=== PATIENT | male | born 1935 | race American Indian/Alaskan Native ===

== ENCOUNTER 2016-12-21 13:54 | Observation (INO) | payer MEDICARE, OTHER ==
[2016-12-21 14:17] VITALS: BMI 22.9
--- NOTE | 2016-12-21 14:35 | ED PDOC ---
Arrival/HPI - General Chief Complaint: Abdominal Pain Time Seen by Provider: 12/21/16 14:17 Historian: Patient, Family (Daughter) - History of Present Illness Narrative History of Present Illness (Text): 12/21/16 14:25 A 81 year old male, whose past medical history includes Esophageal CA, is accompanied to the emergency room with Daughter for complaints of 2 episodes of vomiting a few hours prior to arrival. Daughter notes that patient vomited red blood this morning. Daughter reports that patient had a similar episode of vomiting last year. Daughter denies diarrhea, fever, chest pain, shortness of breath, or any other complaints. PMD: Dr. Menard Time/Duration: 1-3 hours Symptom Onset: Sudden Symptom Course: Unchanged Severity Level: Moderate Activities at Onset: Light Context: Home Past Medical History - Provider Review Nursing Documentation Reviewed: Yes - Infectious Disease Hx of Infectious Diseases: None - Reproductive Currently : No - Cardiac Hx Hypertension: Yes - Pulmonary Hx Respiratory Disorders: No - Neurological Hx Neurological Disorder: No Hx Paralysis: No - HEENT Hx HEENT Disorder: Yes Other/Comment: wears glasses for reading - Renal Hx Renal Disorder: No - Endocrine/Metabolic Hx Endocrine Disorders: Yes Hx Diabetes Mellitus Type 1: Yes Hx Diabetes Mellitus Type 2: Yes - Hematological/Oncological Hx Blood Disorders: Yes Hx Blood Transfusions: Yes (04/20/16) Hx Blood Transfusion Reaction: No Hx Cancer: Yes (esophageal cancer) Hx Unexplained Bleeding: Yes (Hematemesis) - Integumentary Hx Dermatological Disorder: No - Musculoskeletal/Rheumatological Hx Musculoskeletal Disorders: Yes Hx Falls: No Hx Unsteady Gait: Yes (Uses a cane.) - Gastrointestinal Hx Gastrointestinal Disorders: Yes (esoph ca/peg/dysphagia/gi bleed) HX Swallowing Problems: Yes Other/Comment: esophageal cancer g tube placement - Genitourinary/Gynecological Hx Genitourinary Disorders: No Hx Reproductive Disorders: No - Psychiatric Hx Psychophysiologic Disorder: No Hx Emotional Abuse: No Hx Physical Abuse: No Hx Substance Use: No - Surgical History Hx Carotid Endarterectomy: Yes - Anesthesia Hx Anesthesia: Yes Hx Anesthesia Reactions: No Hx Malignant Hyperthermia: No - Suicidal Assessment Feels Threatened In Home Enviroment: No Family/Social History - Physician Review Nursing Documentation Reviewed: Yes Family/Social History: No Known Family HX Smoking Status: Never Smoked Hx Alcohol Use: No Hx Substance Use: No Allergies/Home Meds Allergies/Adverse Reactions: Allergies No Known Allergies Allergy (Verified 04/17/16 20:03) Home Medications: Home Meds Medication Instructions Recorded Confirmed Clopidogrel [Plavix] 75 mg PO DAILY 12/21/16 12/21/16 GlipiZIDE [Glipizide] 10 mg PO BID 12/21/16 12/21/16 Linaclotide [Linzess] 145 mcg PO BID 12/21/16 12/21/16 Metoclopramide [Reglan] 5 mg PO TID 12/21/16 12/21/16 Metoprolol Tartrate [Lopressor] 25 mg PO BID 12/21/16 12/21/16 Mv,Min #10/FA/D3/Alip Acid/Lut 1 tab PO DAILY 12/21/16 12/21/16 [Strovite One Caplet] Pantoprazole Sodium [Protonix] 40 mg PO DAILY 12/21/16 12/21/16 Sucralfate [Carafate] 2 tsp PO BID 12/21/16 12/21/16 amLODIPine [Norvasc] 10 mg PO DAILY 12/21/16 12/21/16 Review of Systems - Physician Review All systems were reviewed & negative as marked: Yes - Review of Systems Constitutional: absent: Fevers Respiratory: absent: SOB Cardiovascular: absent: Chest Pain Gastrointestinal: Vomiting. absent: Diarrhea Physical Exam Vital Signs Reviewed: Yes Vital Signs Temp Pulse Resp BP Pulse Ox 12/21/16 16:29 98.9 F 70 17 141/74 100 12/21/16 14:41 67 20 119/73 99 12/21/16 14:07 99.3 F 94 H 18 136/74 99 Temperature: Afebrile Blood Pressure: Normal Pulse: Tachycardic Respiratory Rate: Normal Appearance: Positive for: Well-Appearing, Non-Toxic, Comfortable Pain Distress: None Mental Status: Positive for: Alert and Oriented X 3 Finger Stick Blood Glucose: 286 - Systems Exam Head: Present: Atraumatic, Normocephalic Pupils: Present: PERRL Extroacular Muscles: Present: EOMI Mouth: Present: Moist Mucous Membranes Neck: Present: Normal Range of Motion Respiratory/Chest: Present: Clear to Auscultation, Good Air Exchange. No: Respiratory Distress, Accessory Muscle Use Cardiovascular: Present: Regular Rate and Rhythm, Murmurs (2/6 systolic murmur) , Tachycardic Abdomen: Present: Normal Bowel Sounds, Other (G-tube in the left abdomen). No: Tenderness, Distention, Peritoneal Signs Upper Extremity: No: Cyanosis, Edema Lower Extremity: No: Edema Neurological: Present: GCS=15, Motor Func Grossly Intact, Normal Sensory Function Skin: Present: Warm, Dry, Normal Color. No: Rashes Psychiatric: Present: Alert, Oriented x 3 Medical Decision Making ED Course and Treatment: Dr Menard saw the pt in the ED and will admit - Lab Interpretations Lab Results: 12/21/16 14:35 Lab Results 12/21/16 15:10: PT 10.0, INR 0.93, APTT 23.7 12/21/16 14:35: WBC 11.8 H D, RBC 3.88, Hgb 10.5 L, Hct 30.3 L, MCV 78.1 L, MCH 27.1, MCHC 34.7, RDW 13.6, Plt Count 284, MPV 10.4, Gran % 75.5 H, Lymph % (Auto ) 12.6 L, [place] % (Auto) 9.5 H, Eos % (Auto) 2.1, Baso % (Auto) 0.3, Gran # 8.94 H, Lymph # 1.5, [place] # 1.1 H, Eos # 0.3, Baso # 0.03 - RAD Interpretation Radiology Orders: 12/21/16 14:31 CHEST PORTABLE [RAD] Stat - Medication Orders Current Medication Orders: Amlodipine Besylate (Norvasc) 10 mg PO DAILY RANULFO Sodium Chloride (Sodium Chloride 0.45%) 1,000 mls @ 40 mls/hr IV .Q24H RANULFO Famotidine (Pepcid 20mg/50ml Premix) 50 mls @ 100 mls/hr IVPB Q12 RANULFO Ceftriaxone Sodium (Rocephin 1 Gram Ivpb) 100 mls @ 100 mls/hr IVPB DAILY RANULFO PRN Reason: Protocol Insulin Human Regular (Humulin R High) 0 units SC ACHS RANULFO PRN Reason: Protocol Metoprolol Tartrate (Lopressor) 25 mg PO BID RANULFO Pantoprazole Sodium (Protonix Inj) 40 mg IVP 0600 RANULFO Sucralfate (Carafate Oral Susp) 1 gm PO BID RANULFO - Scribe Statement The provider has reviewed the documentation as recorded by the Obdulioibpaco Sandoval All medical record entries made by the Obdulioibpaco were at my direction and personally dictated by me. I have reviewed the chart and agree that the record accurately reflects my personal performance of the history, physical exam, medical decision making, and the department course for this patient. I have also personally directed, reviewed, and agree with the discharge instructions and disposition. Disposition/Present on Arrival - Present on Arrival Any Indicators Present on Arrival: No History of DVT/PE: No History of Uncontrolled Diabetes: No Urinary Catheter: No History of Decub. Ulcer: No History Surgical Site Infection Following: None - Disposition Have Diagnosis and Disposition been Completed?: Yes Diagnosis: Hematemesis, Gastrointestinal hemorrhage, Esophageal cancer Disposition: HOSPITALIZED Disposition Time: 17:15 Condition: STABLE
[2016-12-21 14:46] LABS: ADD MANUAL DIFF? NO
[2016-12-21 14:55] LABS: BASO # 0.03 K/mm3 (0.0-2.0); BASO % 0.3 % (0.0-3.0); EOS # 0.3 (0.0-0.7); EOS % 2.1 % (1.5-5.0); GRAN # 8.94 (1.4-6.5); GRAN % 75.5 % (50.0-68.0); HEMATOCRIT 30.3 % (42.0-52.0); LYMPH # 1.5 (1.2-3.4); LYMPH % 12.6 % (22.0-35.0); MEAN CELL VOLUME 78.1 fL (80.0-105.0); MEAN CORPUSCULAR HEMOGLOBIN 27.1 pg (25.0-35.0); MEAN CORPUSCULAR HGB CONC 34.7 g/dl (31.0-37.0); MEAN PLATELET VOLUME 10.4 fl (7.0-11.0); MONO # 1.1 (0.1-0.6); MONO % 9.5 % (1.0-6.0); PLATELET COUNT 284 10^3/uL (120.0-450.0); RED CELL DISTRIBUTION WIDTH 13.6 % (11.5-14.5); WHITE BLOOD COUNT 11.8 10^3/ul (4.5-11.0)
--- NOTE | 2016-12-21 14:56 | RAD ---
HISTORY: vomiting blood COMPARISON: 04/12/2016 FINDINGS: LUNGS: No active pulmonary disease. PLEURA: No significant pleural effusion identified, no pneumothorax apparent. CARDIOVASCULAR: Normal. OSSEOUS STRUCTURES: No significant abnormalities. VISUALIZED UPPER ABDOMEN: Normal. OTHER FINDINGS: None. IMPRESSION: No active disease.
[2016-12-21 15:42] LABS: INR 0.93 (0.93-1.08); PARTIAL THROMBOPLASTIN TIME 23.7 Seconds (23.7-30.8)
[2016-12-21] MEDS ORDERED: Sodium Chloride 0.45% 1,000 ML IV SCH (17:45)
--- NOTE | 2016-12-21 18:27 | HP ---
I saw him in the Emergency Room at [facility]. I was called down to check on him. He wa s coughing up blood x 2 episodes as per his daughter. He is an 81-year-old man who a few hours prior to the arrival was coughing up blood. It would not stop. He did this once last year. There is no diarrhea, chest pain or shortness of breath. He has a past medical history which includes esophageal cancer. It was a sudden onset. It was about 1-3 hours earlier. It is unchanged. It is moderate i n blood. He was doing light activities at home. He has a history of type 2 diabetes. He has transf usions in the past. He has esophageal cancer. He was throwing up blood in the past. He wears glass es. He uses a cane for unsteady gait. He has hypertension. He has esophageal cancer, PEG, dysphagi a, GI bleed, J-tube placement because of the esophageal cancer. FAMILY HISTORY: No known family history. SOCIAL HISTORY: Never smoked. No alcohol, no drugs. ALLERGIES: No known drug allergies. MEDICATIONS: He takes Plavix, glipizide, Linzess, Carafate, Reglan, Levemir, insulin. REVIEW OF SYSTEMS: No acute vision changes, no acute hearing changes, no sore throat, no headache, n o dizziness, no chest pain or shortness of breath, no abdominal pain. There is nauseousness with vom iting of blood. No diarrhea or constipation. No back pain. He can move all 4 extremities. He is a little bit weak. Skin for the most part is intact. Not nervous, not anxious. PHYSICAL EXAMINATION: VITAL SIGNS: He has a 99.3 temp, 94 pulse, 18 respiratory rate, 136/74 blood pressure, 99% O2 sat on room air. HEAD: Atraumatic, normocephalic. GENERAL: He is well appearing, nontoxic, comfortable in the gurney in the [place] [facility]. He is alert a nd oriented x 3. His sugar is 286. HEENT: His extraocular muscles are intact. Throat is moist, no erythema. Pupils equal, reactive to light and accommodation. NECK: Supple, no JVD. HEART: He has a heart murmur, II/ systolic ejection murmur, regular rate. LUNGS: Decreased breath sounds but clear to auscultation. ABDOMEN: Normal bowel sounds. G-tube in the left abdomen. No tenderness. Positive bowel sounds. EXTREMITIES: No edema bilaterally, upper and lower extremities. NEUROLOGICAL: GCS is 15. Cranial nerves II-XII grossly intact. Normal speech. SKIN: Warm and dry. Alert and oriented x 3. Thyroid midline. No palpable lymphadenopathy apprecia zac. He will be on IV fluids. We will check his labs tomorrow. Protonix and Pepcid. He will have a cons ult with GI and oncology. He will get a dose of Rocephin. Check his labs tomorrow. Some IV fluids. We will rest him and hopefully he will do well. He is here for GI bleed, coughing up blood twice, also history of esophageal cancer, hypertension, diabetes. He also had blood tests. His white count is 11.8, hemoglobin 10.5, hematocrit 30.3, platelets of 284 . INR is 0.93. The chemistry is pending. Chest x-ray with no active disease. We will see what the oncologist and the multiple knife edge trimmer operator have to say and we will watch him tomorrow . Check his labs tomorrow. Lb Menard DO cc: [id number] TT: 12/21/2016 18:27:26 sn
[2016-12-21] MEDS: cefTRIAXone 1 gm 100 ML IVPB SCH (19:25)
[2016-12-21 19:34] LABS: ALB/GLOB RATIO 0.7 (1.1-1.8); ALKALINE PHOSPHATASE 113 U/L (38-133); ALT/SGPT 32 U/L (7-56); AST/SGOT 35 U/L (15-59); BILIRUBIN,TOTAL 0.5 mg/dL (0.2-1.3); BLOOD UREA NITROGEN 49 mg/dL (7-21); CALCIUM 9.6 mg/dL (8.4-10.5); CARBON DIOXIDE 30 mmol/L (21-33); CHLORIDE 99 mmol/L (98-107); GFR AFRICAN-AMERICAN 54; GLUCOSE,RANDOM 145 mg/dL (70-110); POTASSIUM 4.3 mmol/L (3.6-5.0); SODIUM 135 mmol/L (132-148); TOTAL PROTEIN 7.8 g/dL (5.8-8.3)
[2016-12-21 19:50] LABS: TROPONIN I < 0.01 ng/mL
[2016-12-21] MEDS ORDERED: Pneumococcal 23-Valent Vaccine IM ONE (21:57)
[2016-12-21] MEDS: Insulin Reg-HIGH-Coverage SC SCH (22:29)
[2016-12-21] MEDS: Famotidine 20mg/50ml 50 ML IVPB SCH (22:36)
[2016-12-21] MEDS: Sucralfate 1 gm/10 ml Oral Susp UD PO SCH (22:37)
[2016-12-22] MEDS ORDERED: Pantoprazole 40mg/100ml IVPB 100 ML IVPB SCH (06:00)
[2016-12-22 07:49] LABS: HEMATOCRIT 29.4 % (42.0-52.0); MEAN CELL VOLUME 78.6 fL (80.0-105.0); MEAN CORPUSCULAR HEMOGLOBIN 26.7 pg (25.0-35.0); MEAN PLATELET VOLUME 9.6 fl (7.0-11.0); RED CELL DISTRIBUTION WIDTH 13.8 % (11.5-14.5); WHITE BLOOD COUNT 8.9 10^3/ul (4.5-11.0)
[2016-12-22 08:06] LABS: ALB/GLOB RATIO 0.8 (1.1-1.8); BILIRUBIN,TOTAL 0.5 mg/dL (0.2-1.3); CALCIUM 9.4 mg/dL (8.4-10.5); POTASSIUM 4.1 mmol/L (3.6-5.0); TOTAL PROTEIN 7.3 g/dL (5.8-8.3)
[2016-12-22] MEDS: Insulin Reg-HIGH-Coverage SC SCH ×4 (08:07→22:49)
--- NOTE | 2016-12-22 08:19 | PN ---
DATE: 12/22/2016 I see him resting comfortably in bed. He tells me he did not throw up any more blood last night, whi ch is good. He did not sleep much. He is on IV fluids, Carafate, insulin coverage, Lopressor, Norvasc, Pepcid IV, Protonix IV, Rocephin, and he wants food in his PEG tube. PHYSICAL EXAMINATION: VITAL SIGNS: He has a 98.4 temp, 65 pulse, 124/64 blood pressure, 18 respiratory rate. HEENT: His head is atraumatic, normocephalic. The throat is moist. NECK: Supple. HEART: Regular rate. LUNGS: Clear to auscultation. ABDOMEN: Soft, positive bowel sounds. PEG tube in place. EXTREMITIES: No edema. He has a white count of 8.9, better, hemoglobin 10, hematocrit 29.4, platelets of 254. INR is 0.93. Chemistry is not populated yet for today. I will check on the BUN and creatinine. They were 49 and 1.5 yesterday. His last sugar was 75. His troponin is less than 0.01. I am also waiting for GI and oncology to see the patient and document notes. I do not know if we nee d any chemo or radiation and when can we start PEG tube feedings again, and possibly when can we disc harge him. I will put him for labs for tomorrow. I am also waiting for the chemistry to populate to day. His white count is better. He appears to be better. He is more alert, less stressed. No more nausea or vomiting blood. We will see what the oncologist and the corporate administrative assistant have to add to the picture. Lb Menard DO cc: [id number] TT: 12/22/2016 08:18:14 Confirmation # [id number] Dictation # [id number] en
--- NOTE | 2016-12-22 09:07 | CARD ---
APPROVED REPORT EKG Measurement Heart [id number] NH 160P35 [id number] <Conclusion> Normal sinus rhythm Left axis deviation Septal infarct, age undetermined Inferior infarct, age undetermined NSSTW changes No change
[2016-12-22] MEDS: cefTRIAXone 1 gm 100 ML IVPB SCH (10:18)
[2016-12-22] MEDS: Sucralfate 1 gm/10 ml Oral Susp UD PO SCH ×2 (10:18→17:23)
[2016-12-22] MEDS: Famotidine 20mg/50ml 50 ML IVPB SCH (10:19)
[2016-12-22] MEDS ORDERED: Dextrose 5%/0.9% NS 1,000 ML IV SCH (11:45)
--- NOTE | 2016-12-22 14:02 | CON ---
DATE: 12/22/2016 Seen and examined at the bedside earlier today. The chart was reviewed. REQUEST FOR CONSULT: GI bleed, history of esophageal cancer. HISTORY OF PRESENT ILLNESS: This is an 81-year-old male with a past medical history of esophageal ca rcinoma who came to the Emergency Room with his daughter for coughing up blood x 2. The patient stat es that it was in a sudden onset. He did have nausea at the time. The patient states that this had happened to him in the past. He was actually seen by our service last in April in which he had epis odes of hemoptysis and hematemesis. The patient's endoscopy reports were reviewed from June and 2015 which were done [address] Gibbs. He was found to have LA grade C acute esophagitis with blood in the middle third and the tumor. The scope was only advanced to the middle third of the eso phagus. The stomach and duodenum were not examined. Since admission, the patient denies any episode s of coughing up blood. He denies any melena or bright red blood per rectum. He has a feeding tube for dysphagia and he received bolus feedings of 2 cans each beading 3 times a day. Occasionally, he does get constipated, but does not note any blood. His last bowel movement was yesterday. Denies an y shortness of breath, chest pain. No abdominal pain, fever or chills. The patient has a gastrostom y tube. PAST MEDICAL HISTORY: Esophageal cancer, had chemotherapy and radiation in the past, GERD, hypertens ion, diabetes mellitus. He has a gastrostomy tube. PAST SURGICAL HISTORY: Gastrostomy tube, carotid endarterectomy. Most recent endoscopy was at [facility] by Dr. Gibbs in 07/2016, found to have LA grade C acute esophagitis with blood in the middle third of the esophagus and tumor. SOCIAL HISTORY: Former smoker. Denies ETOH or drugs. ALLERGIES: No known drug allergies. FAMILY HISTORY: Noncontributory at this time. MEDICATIONS: Reviewed as per MAR. REVIEW OF SYSTEMS: Systems were reviewed with positive findings, see HPI. VITAL SIGNS: Temperature is 98.4, blood pressure is 124/64, his pulse 65, respirations 18. LABORATORY DATA: WBC is 8.9, H and H is 10.10 and 29.4, platelets are 254. His PT from 12/21 is 10.0 , INR is 0.93, PTT is 23.7. Sodium is 139, K is 4.1, BUN 41, creatinine is 1.6. LFTs are within nor mal limits. He had a chest x-ray on admission. This was negative for pleural effusion, no pneumotho rax apparent. Impression: No active disease. PHYSICAL EXAMINATION: HEENT: Sclerae are anicteric NECK: Supple. CARDIAC: S1, S2. LUNGS: With decreased breath sounds, but good aeration, no rales or wheeze. ABDOMEN: With bowel sounds, soft. He has the gastrostomy tube in place. No drainage at insertion s ite. Abdomen is not tender. No rebound, guarding, or organomegaly. EXTREMITIES: Positive pedal pulses, no edema. NEUROLOGIC: Awake, alert, and oriented. ASSESSMENT: This is an 81-year-old man with esophageal carcinoma who came with hemoptysis. He does have history of LA grade C esophagitis, dysphagia. He has a gastrostomy tube. Rule out any mediasti nal infiltration of the tumor. Other comorbidities are hypertension and diabetes mellitus. PLAN: Currently, he will be n.p.o. He is on IV fluids for hydration. We will first request for a C T scan of the chest without contrast to rule out any tumor infiltration. Continue PPI. He is on Pro tonix 40 IV daily. He is also getting Pepcid. He did have some leukocytosis yesterday. He is on IV antibiotics of ceftriaxone. Continue to monitor H and H. He is also receiving Carafate and will be seen by oncology. We will make further recommendations based upon after review of CT scan of the est. Thank you for this consult and for allowing us to participate in your patient's care. The patient wa s seen and case discussed with Dr. Lemos. Tia HERNANDEZ cc: [id number] TT: 12/22/2016 14:01:23 Confirmation # [id number] Dictation # [id number] tn
--- NOTE | 2016-12-22 14:14 | CT ---
PROCEDURE: CT Chest without contrast HISTORY: h/o esophageal tumor, r/o tumor infiltration COMPARISON: 02/29/2016 TECHNIQUE: Contiguous axial images were obtained through the chest without intravenous contrast enhancement. Sagittal and coronal reconstructions were performed. Radiation dose (DLP): 344 mGy-cm. This CT exam was performed using one or more of the following dose reduction techniques: Automated exposure control, adjustment of the mA and/or kV according to patient size, and/or use of iterative reconstruction technique. FINDINGS: LUNGS: There is linear scarring at the left lung base. There is also a focal scar or infiltrate superior to the right hilum which was not present on the previous study. This could be a source of hemoptysis. MEDIASTINUM: Unremarkable thoracic aorta. No aneurysm. Normal sized heart. Main pulmonary artery unremarkable. No vascular congestion. No lymphadenopathy. PLEURA: No pleural fluid. No pneumothorax. BONES: No fracture. No destructive lesion. UPPER ABDOMEN: The esophagus is dilated. There is no obvious erosion into the trachea OTHER FINDINGS: None. IMPRESSION: Focal scar or infiltrate superior to the right hilum. Linear scarring at the left lung base.
[2016-12-23] MEDS: Famotidine 20mg/50ml 50 ML IVPB SCH ×2 (00:14→11:39)
[2016-12-23 02:34] VITALS: RESP 20
--- NOTE | 2016-12-23 04:32 | CON ---
DATE: 12/22/2016 ADDENDUM This is an addendum to the GI progress consultation report dictated by Tia Mckenna. HISTORY OF PRESENT ILLNESS: The patient was seen and evaluated earlier. The patient currently complains of spitting up blood. Not vomiting. The patient has advanced cancer of the esophagus. The patient had 2 endoscopies done earlier with Dr. Carver, and the scope could not be passed beyond the mid esophageal area because of his ulcerated lesion. The patient denies any abdominal pain. PEG site in which his feeding was on hold. I did order for CT scanning earlier, which was reviewed with radiologist. The CT was reviewed with Dr. Maxwell, the radiologist. Focal scarring, infiltrates noticed in the right hilum. At the present time, the patient has been restarted G- tube feeding. There is no immediate plan for endoscopy as this patient has a nearly obstructing lesion in the mid esophageal area. The patient did have small infiltrate in the right hilum that could be also partly related to his hemoptysis. At the moment, no further episodes and the patient is comfortable. Hemoglobin is stable. Would recommend to follow up the hemoglobin and hematocrit and obtain pulmonology evaluation. We will discuss with Dr. Menard. Thank you very much for allowing us to participate in the care of the patient. Kathya Lemos MD cc: [phone] TT: 12/23/2016 04:32:38 Confirmation # [id number] Dictation # [id number] edie LONDON
[2016-12-23 07:04] VITALS: O2SAT 98
[2016-12-23 07:26] LABS: HEMATOCRIT 28.8 % (42.0-52.0); MEAN CELL VOLUME 79.1 fL (80.0-105.0); MEAN CORPUSCULAR HEMOGLOBIN 26.4 pg (25.0-35.0); MEAN CORPUSCULAR HGB CONC 33.3 g/dl (31.0-37.0); MEAN PLATELET VOLUME 9.3 fl (7.0-11.0); RED CELL DISTRIBUTION WIDTH 13.9 % (11.5-14.5); WHITE BLOOD COUNT 7.8 10^3/ul (4.5-11.0)
[2016-12-23 07:44] LABS: ALB/GLOB RATIO 0.7 (1.1-1.8); BILIRUBIN,TOTAL 0.3 mg/dL (0.2-1.3); CALCIUM 9.2 mg/dL (8.4-10.5); POTASSIUM 4.8 mmol/L (3.6-5.0); TOTAL PROTEIN 7.1 g/dL (5.8-8.3)
[2016-12-23] MEDS: Insulin Reg-HIGH-Coverage SC SCH ×2 (08:21→11:37)
--- NOTE | 2016-12-23 09:32 | CON ---
DATE: 12/23/2016 REASON FOR CONSULTATION: Rule out pneumonia. REFERRING PHYSICIAN: Dr. Lb Menard. HISTORY OF PRESENT ILLNESS: The patient is an 81-year-old male with past medical history significant for extensive esophageal cancer, status post PEG tube placement, hemetemesis in the past, who presented to [facility] -- on 12/21/16 -- after he vomited bright red blood at home--twice. In the Emergency Room, the daughter reported that the patient has had similar episodes in the past. He was thus admitted for additional evaluation. The patient denies shortness of breath at rest or dyspnea on exertion. He does state to a cough "every once in a while". There is no sputum production. There is no history of chest pain, coughing up of blood, or chest pain -- made worse with deep respirations. The patient did present to the Emergency Room with low-grade fevers. The fevers have since resolved. No history of chills or infectious exposure. No history of night sweats. The patient does state to a decrease in appetite with some weight loss over the past year. No history of leg or calf pains. No history of syncope or diaphoresis. No history of recent travel or trauma. REVIEW OF SYSTEMS: No acute urinary symptoms. No neurological or musculoskeletal complaints. Rest of review of systems is negative. ALLERGIES: No known allergies. SOCIAL HISTORY: Positive for tobacco, and positive for alcohol. FAMILY HISTORY: No inheritable diseases. HOME MEDICATIONS: Include Norvasc, Carafate, Protonix, Lopressor, Reglan, glipizide, Plavix. PHYSICAL EXAMINATION: SUBJECTIVE: The patient is very comfortable at rest. He is not short of breath. VITALS: Temperature 98.4, pulse 88, respirations 18/20, blood pressure 145/73. Oxygen saturation on room air is 98%. HENT: Normocephalic, atraumatic. No JVD. CARDIOVASCULAR: Positive S1, S2. No S3. LUNGS: Clear bilaterally. EXTREMITIES: No clubbing, cyanosis, or edema. Calves are nontender to palpation. GASTROINTESTINAL: Abdomen is soft, nontender, nondistended. Bowel sounds are positive. There is a PEG tube in place. SKIN: No acute rash. NEUROLOGIC EXAMINATION: Limited at the present time. PERTINENT LABORATORY DATA: CAT scan of the chest was done yesterday and reviewed. There is a focal scar versus infiltrate superior to the right hilum. There is also linear scarring at the left lung base. There is no lymphadenopathy. There is no endobronchial involvement. CBC: White count 7.8, hemoglobin 9.6, hematocrit 28.8, platelets of 271. Complete metabolic profile: BUN 41, creatinine 1.6, glucose 60. Rest of the metabolic profile is within normal limits. IMPRESSION: 1. Hemetemesis(recurrent). 2. Extensive esophageal cancer. 3. Anemia. 4. Scar versus infiltrate -- right lung. PLAN: I did discuss the case with the patient at length. I have also discussed the case with the nurse at length. The patient presented to [facility] -- originally on 12/21/2016 -- after 2 episodes of vomiting blood at home. In the Emergency Room, the patient's daughter stated to similar episodes in the past. I did review the CAT scan of the chest -- as above. There is an infiltrate versus scar -- noted in the right lung. There is also some scarring at the left base. There is no lymphadenopathy. It is certainly possible, that the patient did aspirate some blood -- during one of his episodes of hemetemesis. He did present with a mild leukocytosis. The leukocytosis has since resolved. He also presented with low-grade fevers. The fevers have also resolved. The patient is currently on antibiotic therapy -- and I would continue the antibiotics for now. GI evaluation is also noted. As noted above, he has advanced cancer of the esophagus. At the present time, the patient's lungs are clear. In addition, the oxygen saturation on room air is 98 %. He has had no additional episodes of hemetemesis -- while in the hospital. Clinical status of the patient has improved -- while in the hospital. However, the overall status/prognosis of this elderly patient with advanced esophageal cancer--- is very poor. All are aware. I did discuss the case with Dr. Menard at length. Thank you very much for this pulmonary consultation. Jalil Latham MD cc: [phone] TT: 12/23/2016 09:31:53 Confirmation # [id number] Dictation # [id number] jn LITA
[2016-12-23] MEDS: Sucralfate 1 gm/10 ml Oral Susp UD PO SCH (09:53)
[2016-12-23] MEDS: cefTRIAXone 1 gm 100 ML IVPB SCH (09:54)
--- NOTE | 2016-12-23 12:29 | PN ---
DATE: 12/23/2016 Seen and examined at the bedside earlier today. He denies any hematemesis or hemoptysis. No complai nts of nausea, vomiting or abdominal pain. Tolerating so far the bolus feedings. He did report havi ng a bowel movement yesterday, but no reports of any melena or bright red blood. Denies any shortnes s of breath or chest pain. VITAL SIGNS: His temperature is 98.4, blood pressure is 130/69, pulse 72, respirations 20, 98 on zonia m air. LABORATORY DATA: WBC 7.8. His hemoglobin is 9.6, hematocrit 28.8, platelets are 271. Sodium 139, K 4.8, BUN 41, creatinine is 1.5. LFTs are within normal limits. PHYSICAL EXAMINATION: HEENT: Sclerae are anicteric. NECK: Supple. CARDIAC: S1, S2. LUNGS: Decreased breath sounds but clear, no rales or wheeze. ABDOMEN: With bowel sounds. It is soft and nondistended. He has a G-tube in place. No bleeding no zac. ASSESSMENT AND PLAN: This is an 81-year-old male with a history of esophageal cancer, status post G- tube placement, came with complaints of coughing up of blood. The patient has had [address] Carver, in which the scope was not able to pass beyond the mid esophagus secondary to the ulce rated lesions. We did a CT scan to rule out any infiltration of the disease which was reviewed with Dr. Maxwell, the radiologist, and it is noted that there is focal scarring and infiltrates noticed in the right hilum, which may be partially related to the hemoptysis. The patient has had no further ep isodes. Denies any pain. He was seen by pulmonology and appreciate recommendations. PLAN: The patient is and he has been tolerating his feedings. His other comorbidity is diabet es mellitus. The patient can continue on bolus feedings. He is going to be discharged home today to follow up outpatient with Dr. Menard and his oncologist. He can continue the Carafate and the Alexander nix. The patient was seen and case discussed with Dr. Lemos. Tia HERNANDEZ cc: [id number] TT: 12/23/2016 12:29:10 Confirmation # [id number] Dictation # [id number] rn
[2016-12-23 12:40] VITALS: BP 144/66; PULSE 66; TEMP 98.6
--- NOTE | 2016-12-23 15:06 | DS ---
He is doing much better. He has no more blood. I discussed it with GI who says not doing any scopin g or anything like that. He was scoped in the past. He is comfortable to go home. No more coughing up blood. There is also questionable issue of a lung on CAT scan of the chest which showed either a scar or an infiltrate. He did get better on Rocephin. I will put him on 1 week of Vantin 200 mg tw ice a day. He was here for gastrointestinal bleed, coughing up or throwing up blood; he has esophageal tumor, qu estionable scar versus pneumonia. He will be followed up in the office in a week. He is in observation for 2 days. Lb Menard DO cc: [id number] TT: 12/23/2016 15:05:10 wy
== END 2016-12-23 14:04 | disposition home or self-care (01) ==
LOC: ED 13:54 → INTOOBSV 17:15 → OBSVTOIN 17:15 → ERH 17:15 → 2RSO 21:34
PROVIDERS: ADMIT Family Medicine; ATTEND Family Medicine
DX: C15.4 Malignant neoplasm of middle third of esophagus (principal); K92.0 Hematemesis; K21.0 Gastro-esophageal reflux disease with esophagitis; D64.9 Anemia, unspecified; E11.9 Type 2 diabetes mellitus without complications; I10 Essential (primary) hypertension; J18.9 Pneumonia, unspecified organism; K59.00 Constipation, unspecified; K92.2 Gastrointestinal hemorrhage, unspecified; J98.4 Other disorders of lung; R13.10 Dysphagia, unspecified; D72.829 Elevated white blood cell count, unspecified; R40.2412 Glasgow coma scale score 13-15, at arrival to emergency department; Z79.02 Long term (current) use of antithrombotics/antiplatelets; Z79.899 Other long term (current) drug therapy; Z87.891 Personal history of nicotine dependence; Z92.21 Personal history of antineoplastic chemotherapy; Z92.3 Personal history of irradiation; Z93.1 Gastrostomy status
CPT/HCPCS: 36415; 71010; 71250; 80053; 82948; 84484; 85025; 85027; 85610; 85730; 93005; 96365; 99285; C9113; G0378; J0696; J7030; J7042

== ENCOUNTER 2017-01-25 15:39 | Observation (INO) | payer MEDICARE, OTHER ==
[2017-01-25 15:53] VITALS: BMI 23.6
[2017-01-25 15:59] VITALS: O2SAT 100
--- NOTE | 2017-01-25 16:31 | ED PDOC ---
Arrival/HPI - General Chief Complaint: GI Problem Time Seen by Provider: 01/25/17 16:00 Historian: Patient - History of Present Illness Narrative History of Present Illness (Text): 01/25/17 16:36 An 82 year old male, whose past medical history includes esophageal cancer ( with G tube), presents to the emergency department complaining of hemoptysis since yesterday. Patient denies any chest pain, shortness of breath or any other complaints at this time. Patient notes he quit smoking 30 years ago and denies any alcohol use. Time/Duration: 24 hours Symptom Onset: Sudden Symptom Course: Unchanged Activities at Onset: Rest Modifying Factors (Text): none Context: Home Associated Symptoms (Text): none 01/25/17 18:30 History of esophageal cancer. No longer on chemotherapy. Reports hemoptysis since yesterday. Has a history of hemoptysis. He does not take by mouth, but only via his G-tube. Past Medical History - Provider Review Nursing Documentation Reviewed: Yes - Infectious Disease Hx of Infectious Diseases: None - Reproductive Currently : No - Cardiac Hx Hypertension: Yes Other/Comment: left carotid endarterectomy 5 yrs ago - Pulmonary Hx Respiratory Disorders: No - Neurological Hx Neurological Disorder: No - HEENT Hx HEENT Disorder: Yes Other/Comment: wears glasses for reading - Renal Hx Renal Disorder: No - Endocrine/Metabolic Hx Endocrine Disorders: Yes Hx Diabetes Mellitus Type 1: Yes Hx Diabetes Mellitus Type 2: Yes - Hematological/Oncological Hx Blood Disorders: Yes Hx Anemia: Yes (blood transfusion 04/20/16) Hx Cancer: Yes (esophageal cancer) Hx Unexplained Bleeding: Yes (Hematemesis) Other/Comment: finished radiation "6/7/or 8 months ago" as per pt - Integumentary Hx Dermatological Disorder: No - Musculoskeletal/Rheumatological Hx Falls: No - Gastrointestinal Hx Gastrointestinal Disorders: Yes (esoph ca/peg/dysphagia/gi bleed) HX Swallowing Problems: Yes Other/Comment: esophageal cancer g tube placement, hemetamesis - Genitourinary/Gynecological Hx Genitourinary Disorders: No - Psychiatric Hx Psychophysiologic Disorder: No Hx Emotional Abuse: No Hx Physical Abuse: No Hx Substance Use: No - Surgical History Other/Comment: peg tube - Anesthesia Hx Anesthesia: Yes Hx Anesthesia Reactions: No Hx Malignant Hyperthermia: No - Suicidal Assessment Feels Threatened In Home Enviroment: No Family/Social History - Physician Review Nursing Documentation Reviewed: Yes Family/Social History: No Known Family HX Smoking Status: Former Smoker Hx Alcohol Use: No Hx Substance Use: No Allergies/Home Meds Allergies/Adverse Reactions: Allergies No Known Allergies Allergy (Verified 01/25/17 15:46) Home Medications: Home Meds Medication Instructions Recorded Confirmed Clopidogrel [Plavix] 75 mg PO DAILY 12/21/16 01/25/17 GlipiZIDE [Glipizide] 10 mg PO BID 12/21/16 01/25/17 Linaclotide [Linzess] 145 mcg PO BID 12/21/16 01/25/17 Metoclopramide [Reglan] 5 mg PO TID 12/21/16 01/25/17 Metoprolol Tartrate [Lopressor] 25 mg PO BID 12/21/16 01/25/17 Mv,Min10/Folic Acid/D3/Ala/Lut 1 tab PO DAILY 12/21/16 01/25/17 [Strovite One Caplet] Pantoprazole Sodium [Protonix] 40 mg PO DAILY 12/21/16 01/25/17 Sucralfate [Carafate] 2 tsp PO BID 12/21/16 01/25/17 amLODIPine [Norvasc] 10 mg PO DAILY 12/21/16 01/25/17 Review of Systems - Physician Review All systems were reviewed & negative as marked: Yes - Review of Systems Constitutional: Fatigue. absent: Fevers Respiratory: Cough (hemoptysis). absent: SOB, Sputum, Wheezing Cardiovascular: absent: Chest Pain, Palpitations, Syncope Gastrointestinal: absent: Abdominal Pain, Diarrhea, Nausea, Vomiting Neurological: absent: Headache, Dizziness Physical Exam Vital Signs Reviewed: Yes Vital Signs Temp Pulse Resp BP Pulse Ox 01/25/17 15:58 98.4 F 78 16 136/66 100 Temperature: Afebrile Blood Pressure: Normal Pulse: Regular Respiratory Rate: Normal Appearance: Positive for: Non-Toxic, Comfortable, Other (chronically ill- appearing) Pain Distress: None Mental Status: Positive for: Alert and Oriented X 3 - Systems Exam Head: Present: Atraumatic, Normocephalic Pupils: Present: PERRL Extroacular Muscles: Present: EOMI Conjunctiva: Present: Normal Mouth: Present: Moist Mucous Membranes Pharnyx: No: ERYTHEMA, EXUDATE, TONSILS ENLARGED Neck: Present: Normal Range of Motion Respiratory/Chest: Present: Clear to Auscultation, Good Air Exchange, Decreased Breath Sounds, Other (diminished lung sounds). No: Respiratory Distress, Accessory Muscle Use Cardiovascular: Present: Regular Rate and Rhythm, Normal S1, S2. No: Murmurs Abdomen: Present: Normal Bowel Sounds, Other (G tube). No: Tenderness, Distention, Peritoneal Signs Back: Present: Normal Inspection Upper Extremity: Present: Normal Inspection. No: Cyanosis, Edema Lower Extremity: Present: Normal Inspection. No: Edema, CALF TENDERNESS Neurological: Present: GCS=15, CN II-XII Intact, Speech Normal, Motor Func Grossly Intact Skin: Present: Warm, Dry, Normal Color. No: Rashes Psychiatric: Present: Alert, Oriented x 3, Normal Insight, Normal Concentration Medical Decision Making ED Course and Treatment: 01/25/17 16:28 Impression: An 82 year old male with hemoptysis. Differential Diagnosis included but are not limited to: Plan: -- EKG -- chest xray -- labs -- Reassess and disposition Prior Visits: Notes and results from previous visits were reviewed. Patient last reported to to emergency department on 12/21/16 for evaluation of hematemesis. Patient was admitted under Dr. Menard's service. Patient was discharged on 12/23/16. Progress Notes: 01/25/17 18:[address] Menard's service. - Lab Interpretations Lab Results: 01/25/17 17:15 01/25/17 17:15 Lab Results 01/25/17 17:15: Sodium 129 L, Potassium 4.8, Chloride 98, Carbon Dioxide 26, Anion Gap 10, BUN 50 H, Creatinine 1.3, Est GFR ( Amer) > 60, Est GFR ( Non-Af Amer) 53, Random Glucose 345 H*, Calcium 9.2, Total Bilirubin 0.5, AST 17 , ALT 18, Alkaline Phosphatase 112, Lactate Dehydrogenase 370, Total Creatine Kinase 31 L, Troponin I < 0.01, Total Protein 7.3, Albumin 3.1, Globulin 4.2, Albumin/Globulin Ratio 0.7 L 01/25/17 17:15: PT 10.1, INR 0.94, APTT 24.7 01/25/17 17:15: WBC 12.4 H D, RBC 3.43 L, Hgb 9.3 L, Hct 26.9 L, MCV 78.4 L, MCH 27.1, MCHC 34.6, RDW 14.3, Plt Count 384, MPV 10.5, Gran % 76.4 H, Lymph % ( Auto) 14.2 L, [place] % (Auto) 6.4 H, Eos % (Auto) 2.7, Baso % (Auto) 0.3, Gran # 9.49 H, Lymph # 1.8, [place] # 0.8 H, Eos # 0.3, Baso # 0.04 I have reviewed the lab results: Yes - RAD Interpretation Radiology Orders: 01/25/17 16:09 CHEST PORTABLE [RAD] Stat X-ray chest 1 view shows cardiomegaly with a wide mediastinum and no infiltrate or effusion Yeast Culture Developer: ED Physician - EKG Interpretation Interpreted by ED Physician: Yes Type: 12 lead EKG - Medication Orders Current Medication Orders: Sodium Chloride (Sodium Chloride 0.9%) 500 mls @ 500 mls/hr IV ONCE ONE Stop: 01/25/17 19:34 - Scribe Statement The provider has reviewed the documentation as recorded by the Garrett Hays Provider Scribe Attestation: All medical record entries made by the Scribe were at my direction and personally dictated by me. I have reviewed the chart and agree that the record accurately reflects my personal performance of the history, physical exam, medical decision making, and the department course for this patient. I have also personally directed, reviewed, and agree with the discharge instructions and disposition. Disposition/Present on Arrival - Present on Arrival Any Indicators Present on Arrival: No History of DVT/PE: No History of Uncontrolled Diabetes: No Urinary Catheter: No History of Decub. Ulcer: No History Surgical Site Infection Following: None - Disposition Have Diagnosis and Disposition been Completed?: Yes Diagnosis: Esophageal cancer, Hematemesis, Anemia, Dehydration, Hemoptysis Disposition: HOSPITALIZED Disposition Time: 18:37 Patient Plan: Observation Condition: FAIR Referrals: Lb Menard DO [Primary Care Provider] - Follow up with primary
[2017-01-25 17:25] LABS: ADD MANUAL DIFF? NO
[2017-01-25 17:43] LABS: BASO # 0.04 K/mm3 (0.0-2.0); BASO % 0.3 % (0.0-3.0); EOS # 0.3 (0.0-0.7); EOS % 2.7 % (1.5-5.0); GRAN # 9.49 (1.4-6.5); GRAN % 76.4 % (50.0-68.0); HEMATOCRIT 26.9 % (42.0-52.0); LYMPH # 1.8 (1.2-3.4); LYMPH % 14.2 % (22.0-35.0); MEAN CELL VOLUME 78.4 fL (80.0-105.0); MEAN CORPUSCULAR HEMOGLOBIN 27.1 pg (25.0-35.0); MEAN CORPUSCULAR HGB CONC 34.6 g/dl (31.0-37.0); MEAN PLATELET VOLUME 10.5 fl (7.0-11.0); MONO # 0.8 (0.1-0.6); MONO % 6.4 % (1.0-6.0); PLATELET COUNT 384 10^3/uL (120.0-450.0); RED CELL DISTRIBUTION WIDTH 14.3 % (11.5-14.5); WHITE BLOOD COUNT 12.4 10^3/ul (4.5-11.0)
[2017-01-25 17:44] LABS: ALB/GLOB RATIO 0.7 (1.1-1.8); ALKALINE PHOSPHATASE 112 U/L (38-133); ALT/SGPT 18 U/L (7-56); AST/SGOT 17 U/L (15-59); BILIRUBIN,TOTAL 0.5 mg/dL (0.2-1.3); BLOOD UREA NITROGEN 50 mg/dL (7-21); CALCIUM 9.2 mg/dL (8.4-10.5); CARBON DIOXIDE 26 mmol/L (21-33); CHLORIDE 98 mmol/L (98-107); GFR AFRICAN-AMERICAN > 60; POTASSIUM 4.8 mmol/L (3.6-5.0); SODIUM 129 mmol/L (132-148); TOTAL PROTEIN 7.3 g/dL (5.8-8.3)
[2017-01-25 17:49] LABS: GLUCOSE,RANDOM 345 mg/dL (70-110)
[2017-01-25 17:51] LABS: INR 0.94 (0.93-1.08); PARTIAL THROMBOPLASTIN TIME 24.7 Seconds (23.7-30.8)
[2017-01-25 17:59] LABS: TROPONIN I < 0.01 ng/mL
[2017-01-25] MEDS ORDERED: Sodium Chloride 0.9% 500 ML IV ONE (18:35)
[2017-01-26 00:09] VITALS: RESP 20
--- NOTE | 2017-01-26 01:51 | CARD ---
APPROVED REPORT EKG Measurement Heart [id number] <Conclusion> Normal sinus rhythm Left axis deviation Inferior infarct, age undetermined Abnormal ECG
[2017-01-26] MEDS ORDERED: Sodium Chloride 0.45% 1,000 ML IV SCH ×2 (06:30→09:00)
[2017-01-26] MEDS ORDERED: Sodium Chloride 0.9% 1,000 ML IV SCH (07:30)
[2017-01-26 08:18] LABS: HEMATOCRIT 27.2 % (42.0-52.0); MEAN CELL VOLUME 78.2 fL (80.0-105.0); MEAN CORPUSCULAR HEMOGLOBIN 26.4 pg (25.0-35.0); MEAN CORPUSCULAR HGB CONC 33.8 g/dl (31.0-37.0); MEAN PLATELET VOLUME 8.9 fl (7.0-11.0); RED CELL DISTRIBUTION WIDTH 13.9 % (11.5-14.5); WHITE BLOOD COUNT 10.3 10^3/ul (4.5-11.0)
[2017-01-26 08:34] LABS: ALB/GLOB RATIO 0.7 (1.1-1.8); BILIRUBIN,TOTAL 0.5 mg/dL (0.2-1.3); CALCIUM 9.7 mg/dL (8.4-10.5); POTASSIUM 4.6 mmol/L (3.6-5.0); TOTAL PROTEIN 7.4 g/dL (5.8-8.3)
[2017-01-26] MEDS ORDERED: Acetaminophen 650mg/20.3ml solution UD GT PRN (08:48)
[2017-01-26 08:49] VITALS: TEMP 98.3
--- NOTE | 2017-01-26 08:55 | RAD ---
HISTORY: hemoptysis COMPARISON: 12/21/2016 FINDINGS: LUNGS: No active pulmonary disease. PLEURA: No significant pleural effusion identified, no pneumothorax apparent. CARDIOVASCULAR: Normal. OSSEOUS STRUCTURES: No significant abnormalities. VISUALIZED UPPER ABDOMEN: Normal. OTHER FINDINGS: None. IMPRESSION: No active disease.
--- NOTE | 2017-01-26 09:19 | HP ---
I know the patient very well from multiple admissions to the hospital. He has a known esophageal teena or that bleeds from time to time. He has a PEG tube. He had some coughing up blood last night, and it is better now. No chest pain or shortness of breath, no abdominal pain. He quit smoking 30 years ago, but he has an esophageal cancer. He had a G-tube. No longer on chemotherapy. He had hemoptys is yesterday. He does not take anything by mouth, only through the G-tube. He had a left carotid en darterectomy 5 years ago. He has hypertension. He wears glasses. He has diabetes. He has had mult iple blood transfusions, esophageal cancer, hematemesis. He finished radiation 8 months ago. He has dysphagia. He no longer uses his mouth to eat. Everything is through the G-tube. FAMILY HISTORY: He has no known family history. SOCIAL HISTORY: Former smoker, no alcohol, no drugs. ALLERGIES: No known drug allergies. MEDICATIONS: He takes Plavix, which is on hold because he was bleeding, glipizide, Linzess, Reglan, Lopressor, vitamins, Protonix, Carafate, Norvasc. I will put him on insulin coverage. REVIEW OF SYSTEMS: No acute vision changes or hearing changes. No sore throat. He did cough up domingo e blood. No chest pain or shortness of breath, no abdominal pain. I think the coughing up blood was not from the lungs, but from the esophagus. ABDOMEN: No abdominal pain, nausea, vomiting, constipation, diarrhea, but he threw up blood once. H e has got a feeding tube in place. EXTREMITIES: No edema. He is comfortable at this time. No blood for the past 10 hours, I was told. PHYSICAL EXAMINATION: VITAL SIGNS: He has a 98.4 temp, 78 pulse, 16 respiratory rate, 136/66 blood pressure, 100% O2 sat o n room air. HEENT: Head is atraumatic, normocephalic. His extraocular muscles are intact. Pupils are equal and reactive to light. He is talking to me. He is comfortable. He is looking for food. He feels hung ry. No sore throat. No chest pain, no shortness of breath. HEART: Regular rate. LUNGS: Clear to auscultation with decreased breath sounds. ABDOMEN: Soft, positive bowel sounds. He has a PEG tube in place. GENERAL: He is alert, comfortable. HEAD: Normocephalic, atraumatic. EXTREMITIES: Have no edema. NEUROLOGIC: GCS is 15. Cranial nerves II-XII grossly intact. Thyroid midline. No palpable lymphad enopathy appreciated. LABORATORY DATA: On blood tests, he has a 129 sodium. Potassium is 4.8, BUN 50, creatinine 1.3. He is supposed to be on IV fluids. GFR is 53. Sugar is 345. He is on coverage. Calcium is 9.2. Tot al bili is 0.5. AST is 17. ALT is 18, alk phos 112. Lactic dehydrogenase is 370. Troponin I is le ss than 0.01. Total protein is 7.3. Albumin is 3.1. INR is 0.94. White count - when he came in it was 12. It is down to 10.3. It could have been inflammation. His hemoglobin is 9.3 when he was coughing up blood this morning. Without coughing up blood, it is 9.2. His hematocrit went up to 27. 2. Platelets are 302. He is in observation status. Chest x-ray is pending. There is a consult for GI. My plan is to discharge him later today with the same medications at home since his hemoglobin did no t drop. He is here for hemoptysis, esophageal cancer history. He has got diabetes. I think he can go home l ater today. We will see what GI has to offer. He is on Protonix IV twice a day. Hopefully, he will go home by 3:00 this afternoon. Discussed with the nurse. Lb Menard DO cc: [id number] TT: 01/26/2017 09:19:20 claire
[2017-01-26] MEDS ORDERED: FOLIC ACID PO SCH (10:00)
[2017-01-26] MEDS ORDERED: LUT PO SCH (10:00)
[2017-01-26] MEDS ORDERED: D3 PO SCH (10:00)
[2017-01-26] MEDS ORDERED: ALA PO SCH (10:00)
[2017-01-26] MEDS ORDERED: Sucralfate 1 gm/10 ml Oral Susp UD PO SCH ×2 (10:00)
[2017-01-26] MEDS ORDERED: MV MIN10 PO SCH (10:00)
[2017-01-26 10:09] VITALS: BP 122/67; PULSE 75
[2017-01-26] MEDS ORDERED: Insulin Reg-MEDIUM-Coverage SC SCH (11:30)
[2017-01-26] MEDS ORDERED: Insulin Reg-LOW-Coverage SC SCH (12:00)
[2017-01-26] MEDS ORDERED: VIGAMOX 0.5% OU SCH (12:00)
[2017-01-26] MEDS ORDERED: EYE OU SCH (12:00)
--- NOTE | 2017-01-26 13:42 | CON ---
DATE: 01/26/2017 Seen and examined at the bedside. REQUEST FOR CONSULTATION: For hemoptysis. HISTORY OF PRESENT ILLNESS: This is an 82-year-old male with a history of esophageal cancer, GERD, h ypertension, diabetes mellitus. Came to the Emergency Room with complaint of hemoptysis. The patien charis stated that yesterday he had a dry cough and after that, he started to spit up phlegm and noted blo od streaks. Denies any vomiting of blood. No nausea. Occasionally, he gets abdominal cramps. Alec es any shortness of breath or chest pain. He had chemotherapy almost a year now. The patient kaylah brown has a feeding tube and gets bolus feeding through this. He denies any melena or bright red blood per rectum. Occasionally, he may get constipated and takes laxatives. He did have endoscopy back i n June and July of [address] Carver, found to have LA grade C acute esophagitis with blood in the middle third and the tumor. The scope was only advanced to the middle third of the esophagus. The stomach and duodenum were not examined. The patient follows up with his oncologist in [facility] at least once a month. He could not recall the doctor's name. He has not had an episode of hemopt ysis since admission and has never had any hematemesis. On admission, he had a chest x-ray and that was negative for any active disease. PAST MEDICAL HISTORY: As stated above, he has esophageal cancer. He completed chemotherapy almost a year now and also had radiation. History of diabetes mellitus, GERD, hypertension, has PEG tube. PAST SURGICAL HISTORY: Carotid endarterectomy, gastrostomy tube. Last endoscopy was at [facility] by Dr. Carver. Endoscopy was 08/02/ . SOCIAL HISTORY: Former smoker. Denies drugs or ETOH. ALLERGIES: No known drug allergies. MEDICATIONS: Reviewed as per MAR. Significant for Plavix, which is currently on hold. FAMILY HISTORY: Noncontributory at this time. REVIEW OF SYSTEMS: Systems reviewed with positive findings, see HPI. VITAL SIGNS: Temperature is 98.3, blood pressure 122/67, pulse 75, respirations 20, 100% on room air . LABORATORIES: WBC 10.3, H and H is 9.2 and 27.2. The H and H remain steady. Platelets is 302. PT is 10.1, INR 0.94, PTT 24.7. Sodium 140, K 4.6, BUN 38, creatinine is 1.5. LFTs are within normal l imits. PHYSICAL EXAMINATION: HEENT: Sclera is anicteric. NECK: Supple. CARDIAC: S1, S2. LUNG SOUNDS: With decreased breath sounds, but good air entry. ABDOMEN: With bowel sounds, soft, nontender on palpation. No rebound or guarding. Positive PEG tub e. No discharge or erythema noted at the insertion site of the PEG tube. EXTREMITIES: No edema. NEUROLOGIC: He is awake, alert, and oriented. ASSESSMENT: This patient with history of esophageal cancer, had episode of hemoptysis, no hematemesi s. He did have endoscopy. Last endoscopy was 07/2016, found to have severe esophagitis. The endosc opy scope was unable to be advanced to the stomach and duodenum. The scope was only advanced to the middle third of the esophagus. Report reviewed in [employer] system. Anemia, his hemoglobin has remai mark stable, history of gastroesophageal reflux disease, hypertension, diabetes mellitus. PLAN: Continue PPI. The patient is on Carafate. Monitor H and H. The patient has not had any blee ding and we can resume his percutaneous endoscopic gastrostomy feedings. Follow with Dr. Menard and discussed the patient will be discharged home today to follow up with Dr. Menard and his oncologist. Thank you for this consult and for allowing us to participate in your patient's care. The patient wa s seen and case discussed with Dr. Lemos. Tia HERNANDEZ cc: [id number] TT: 01/26/2017 13:41:36 Confirmation # [id number] Dictation # [id number] en
[2017-01-27] MEDS ORDERED: Pantoprazole 40 mg EC Tab PO SCH (07:30)
--- NOTE | 2017-01-27 07:33 | CON ---
DATE: 01/26/2017 This patient was seen and evaluated earlier today. The patient discussed with Dr. Menard. No further episodes of spitting up blood. No vomiting actually patient had. The patient did have an advanced esophageal cancer status post radiation and chemo. The patient is tolerating the feeding tube. PHYSICAL EXAMINATION: The feeding tube in place. Abdomen soft otherwise. The patient is comfortable. LABORATORY DATA: Review of the labs: Hemoglobin is stable. Recommend this patient to be restarted on the feeding. Continue the oncology; will follow up as an outpatient. This is an addendum to the GI consultation report dictated by Tia Mckenna NP. Thank you very much for allowing us to participate in the care of the patient. Kathya Lemos MD cc: [id number] TT: 01/27/2017 07:32:36 Confirmation # [id number] Dictation # [id number] whitley [place]
--- NOTE | 2017-02-12 11:36 | DS ---
HISTORY: Patient comes to the hospital again with coughing up blood. He has got esophageal tumor th at bleeds, plus he is also on medications that thin the blood and he came in again. He had a hemoglo bin that was fairly stable. We put him in overnight to watch him. He was in observation status. He has a known esophageal cancer which GI cannot resect, surgery cannot resect. There is nothing we ca n do about it. He was sent home hopefully not to come back for this coughing up blood, so we will ke ep a blood test at home if we have to and was he discharged today with hemoptysis x 1 at home. Lb Menard DO cc: [id number] TT: 02/12/2017 11:35:45 jn
== END 2017-01-26 16:26 | disposition home or self-care (01) ==
LOC: ED 15:39 → ERH 18:35 → 5RSO 21:10
PROVIDERS: ADMIT Family Medicine; ATTEND Family Medicine
DX: C15.9 Malignant neoplasm of esophagus, unspecified (principal); R04.2 Hemoptysis; E86.0 Dehydration; D64.9 Anemia, unspecified; I10 Essential (primary) hypertension; R13.10 Dysphagia, unspecified; E11.9 Type 2 diabetes mellitus without complications; K59.00 Constipation, unspecified; K21.0 Gastro-esophageal reflux disease with esophagitis; Z93.1 Gastrostomy status; Z92.3 Personal history of irradiation; Z92.21 Personal history of antineoplastic chemotherapy; Z79.02 Long term (current) use of antithrombotics/antiplatelets; Z87.891 Personal history of nicotine dependence
CPT/HCPCS: 36415; 71010; 80053; 82550; 82948; 83615; 84484; 85025; 85027; 85610; 85730; 93005; 96360; 99284; C9113; G0378; J7030; J7040

== ENCOUNTER 2017-01-27 08:58 | Observation (INO) | payer MEDICARE, OTHER ==
[2017-01-27 08:59] VITALS: BMI 23.6
--- NOTE | 2017-01-27 10:19 | ED PDOC ---
Arrival/HPI - General Chief Complaint: GI Problem Time Seen by Provider: 01/27/17 09:52 Historian: Patient, Family (daughter ) - History of Present Illness Narrative History of Present Illness (Text): 01/27/17 10:14 Jim Nguyen Jr. is a 82 year old male, whose past medical history includes hypertension, diabetes, and esophageal cancer, presents to the emergency department complaining of 3 day duration of hemoptysis. Patient was evaluated at [facility] for similar symptoms on 01/25/17, and was admitted to the hospital. He was discharged home yesterday after symptoms transiently resolved. Patient notes he is bringing up blood tinged saliva with clots. He also has a G-tube and does not take anything PO. Denies fever, chills, headache, dizziness, chest pain, difficulty breathing, nausea, vomiting, hematemesis, diarrhea, urinary symptoms, or any other complaints at this time. PMD:Dr. Menard Time/Duration: < week (3 days ) Symptom Onset: Gradual Symptom Course: Intermittent Severity Level: Mild Activities at Onset: Light Context: Home Past Medical History - Provider Review Nursing Documentation Reviewed: Yes - Infectious Disease Hx of Infectious Diseases: None - Reproductive Currently : No - Cardiac Hx Cardiac Disorders: Yes Hx Hypertension: Yes Other/Comment: left carotid endarterectomy 5 yrs ago - Pulmonary Hx Respiratory Disorders: No - Neurological Hx Neurological Disorder: No - HEENT Hx HEENT Disorder: Yes Other/Comment: wears glasses for reading - Renal Hx Renal Disorder: No - Endocrine/Metabolic Hx Endocrine Disorders: Yes Hx Diabetes Mellitus Type 1: Yes Hx Diabetes Mellitus Type 2: Yes - Hematological/Oncological Hx Blood Disorders: Yes Hx Anemia: Yes (blood transfusion 04/20/16) Hx Cancer: Yes (esophageal cancer) Hx Unexplained Bleeding: Yes (Hematemesis) Other/Comment: finished radiation "6/7/or 8 months ago" as per pt - Integumentary Hx Dermatological Disorder: No - Musculoskeletal/Rheumatological Hx Falls: No - Gastrointestinal Hx Gastrointestinal Disorders: Yes (esoph ca/peg/dysphagia/gi bleed) HX Swallowing Problems: Yes Other/Comment: esophageal cancer g tube placement, hemetamesis - Genitourinary/Gynecological Hx Genitourinary Disorders: No - Psychiatric Hx Psychophysiologic Disorder: No Hx Emotional Abuse: No Hx Physical Abuse: No Hx Substance Use: No - Surgical History Other/Comment: peg tube - Anesthesia Hx Anesthesia: Yes Hx Anesthesia Reactions: No Hx Malignant Hyperthermia: No - Suicidal Assessment Feels Threatened In Home Enviroment: No Family/Social History - Physician Review Nursing Documentation Reviewed: Yes Family/Social History: No Known Family HX Smoking Status: Never Smoked Hx Alcohol Use: No Hx Substance Use: No Allergies/Home Meds Allergies/Adverse Reactions: Allergies No Known Allergies Allergy (Verified 01/27/17 09:12) Home Medications: Home Meds Medication Instructions Recorded Confirmed Clopidogrel [Plavix] 75 mg PO DAILY 12/21/16 01/27/17 GlipiZIDE [Glipizide] 10 mg PO BID 12/21/16 01/27/17 Linaclotide [Linzess] 145 mcg PO BID 12/21/16 01/27/17 Metoprolol Tartrate [Lopressor] 25 mg PO BID 12/21/16 01/27/17 Mv,Min10/Folic Acid/D3/Ala/Lut 1 tab PO DAILY 12/21/16 01/27/17 [Strovite One Caplet] Pantoprazole Sodium [Protonix] 40 mg PO DAILY 12/21/16 01/27/17 amLODIPine [Norvasc] 10 mg PO DAILY 12/21/16 01/27/17 Metoclopramide [Reglan] 10 mg PO TID 01/27/17 01/27/17 Review of Systems - Physician Review All systems were reviewed & negative as marked: Yes - Review of Systems Constitutional: Normal. absent: Fatigue, Fevers Respiratory: Cough, Sputum (blood tinged saliva with clots ). absent: SOB Cardiovascular: Normal. absent: Chest Pain, Palpitations Gastrointestinal: absent: Abdominal Pain, Diarrhea, Nausea, Vomiting Neurological: Normal. absent: Headache, Dizziness Psychiatric: Normal Physical Exam - Physical Exam Narrative Physical Exam (Text): Constitutional: No acute distress. Head: Normocephalic. Atraumatic. Eyes: PERRL. ENT: Moist mucous membranes. Blood tinged saliva with clots. Neck: Supple. Cardiovascular: Regular rate. Chest: No tenderness. Respiratory: Clear to auscultation bilaterally. GI: Soft. Nontender. Nondistended. Back: No CVA tenderness. Musculoskeletal: No tenderness or swelling of extremities. Skin: No rash. Neurologic: Alert, no focal deficit. Vital Signs Reviewed: Yes Vital Signs Temp Pulse Resp BP Pulse Ox 01/27/17 10:30 77 17 126/75 100 01/27/17 09:07 99.1 F 82 16 121/63 97 Temperature: Afebrile Blood Pressure: Normal Pulse: Regular Respiratory Rate: Normal Appearance: Positive for: Well-Appearing, Non-Toxic, Comfortable Pain Distress: None Mental Status: Positive for: Alert and Oriented X 3 Medical Decision Making ED Course and Treatment: 01/27/17 10:23 Impression: A 82 year old male who presents to the emergency department for hemoptysis. Plan: -- labs -- EKG -- Chest X-ray -- Protonix -- Reassess and disposition Progress Notes: 01/27/17 12:14 Chest X-ray results reviewed: No active diseases. 01/27/17 12:[address] Gallardo who is aware and agrees with the plan to observe patient at med/surg for GI bleed and esophageal cancer. Accepts patient under his service. Consult with Dr. Lemos for further management and also to attend to G tube, which patient states has not been working well. - Lab Interpretations Lab Results: 01/27/17 11:00 01/27/17 11:00 Lab Results 01/27/17 11:00: Blood Type A POSITIVE, Antibody Screen Negative, BBK History Checked Patient has bt 01/27/17 11:00: Sodium 144, Potassium 4.6, Chloride 106, Carbon Dioxide 28, Anion Gap 15, BUN 40 H, Creatinine 1.5 H, Est GFR ( Amer) 54, Est GFR ( Non-Af Amer) 45, Random Glucose 82, Calcium 10.3, Total Bilirubin 0.5, AST 51, ALT 30, Alkaline Phosphatase 122, Total Protein 8.3, Albumin 3.5, Globulin 4.8, Albumin/Globulin Ratio 0.7 L, Lipase 86 01/27/17 11:00: PT 10.5, INR 0.97, APTT 25.3 01/27/17 11:00: WBC 13.0 H D, RBC 3.74, Hgb 10.0 L, Hct 29.3 L, MCV 78.3 L, MCH 26.7, MCHC 34.1, RDW 13.8, Plt Count 364, MPV 9.2, Gran % 81.9 H, Lymph % (Auto ) 10.5 L, [place] % (Auto) 5.4, Eos % (Auto) 1.7, Baso % (Auto) 0.5, Gran # 10.61 H , Lymph # 1.4, [place] # 0.7 H, Eos # 0.2, Baso # 0.07 I have reviewed the lab results: Yes - RAD Interpretation Narrative RAD Interpretations (Text): FINDINGS: LUNGS: No active pulmonary disease. PLEURA: No significant pleural effusion identified, no pneumothorax apparent. CARDIOVASCULAR: Mild cardiomegaly and mild aortic tortuosity OSSEOUS STRUCTURES: No significant abnormalities. VISUALIZED UPPER ABDOMEN: Normal. OTHER FINDINGS: None. IMPRESSION: No active disease. Radiology Orders: 01/27/17 10:11 CHEST PORTABLE [RAD] Stat Process Owner: Radiologist - Medication Orders Current Medication Orders: Discontinued Medications Pantoprazole Sodium (Protonix Inj) 80 mg IVP STAT STA Stop: 01/27/17 10:14 Last Admin: 01/27/17 10:27 Dose: 80 mg - Obdulioibe Statement The provider has reviewed the documentation as recorded by the Garrett Burnett Provider Attestation: All medical record entries made by the Garrett were at my direction and personally dictated by me. I have reviewed the chart and agree that the record accurately reflects my personal performance of the history, physical exam, medical decision making, and the department course for this patient. I have also personally directed, reviewed, and agree with the discharge instructions and disposition. Disposition/Present on Arrival - Present on Arrival Any Indicators Present on Arrival: Yes History of DVT/PE: No History of Uncontrolled Diabetes: Yes Urinary Catheter: No History of Decub. Ulcer: No History Surgical Site Infection Following: None - Disposition Have Diagnosis and Disposition been Completed?: Yes Diagnosis: Esophageal cancer, GI bleeding, Feeding tube dysfunction Disposition: HOSPITALIZED Disposition Time: 12:00 Patient Plan: Observation Condition: FAIR
[2017-01-27 11:08] LABS: ADD MANUAL DIFF? NO
[2017-01-27 11:11] LABS: BASO # 0.07 K/mm3 (0.0-2.0); BASO % 0.5 % (0.0-3.0); EOS # 0.2 (0.0-0.7); EOS % 1.7 % (1.5-5.0); GRAN # 10.61 (1.4-6.5); GRAN % 81.9 % (50.0-68.0); HEMATOCRIT 29.3 % (42.0-52.0); LYMPH # 1.4 (1.2-3.4); LYMPH % 10.5 % (22.0-35.0); MEAN CELL VOLUME 78.3 fL (80.0-105.0); MEAN CORPUSCULAR HEMOGLOBIN 26.7 pg (25.0-35.0); MEAN CORPUSCULAR HGB CONC 34.1 g/dl (31.0-37.0); MEAN PLATELET VOLUME 9.2 fl (7.0-11.0); MONO # 0.7 (0.1-0.6); MONO % 5.4 % (1.0-6.0); PLATELET COUNT 364 10^3/uL (120.0-450.0); RED CELL DISTRIBUTION WIDTH 13.8 % (11.5-14.5)
[2017-01-27 11:25] LABS: ALB/GLOB RATIO 0.7 (1.1-1.8); BILIRUBIN,TOTAL 0.5 mg/dL (0.2-1.3); CALCIUM 10.3 mg/dL (8.4-10.5); INR 0.97 (0.93-1.08); PARTIAL THROMBOPLASTIN TIME 25.3 Seconds (23.7-30.8); POTASSIUM 4.6 mmol/L (3.6-5.0); TOTAL PROTEIN 8.3 g/dL (5.8-8.3)
--- NOTE | 2017-01-27 11:30 | RAD ---
HISTORY: vomiting blood COMPARISON: 01/25/2017 FINDINGS: LUNGS: No active pulmonary disease. PLEURA: No significant pleural effusion identified, no pneumothorax apparent. CARDIOVASCULAR: Mild cardiomegaly and mild aortic tortuosity OSSEOUS STRUCTURES: No significant abnormalities. VISUALIZED UPPER ABDOMEN: Normal. OTHER FINDINGS: None. IMPRESSION: No active disease.
[2017-01-27] MEDS ORDERED: Dextrose 5%/0.45% NS 1,000 ML IV SCH ×2 (14:30→19:50)
--- NOTE | 2017-01-27 15:06 | CP.PCM.CON ---
History of Present Illness - History of Present Illness History of Present Illness: Seen and examined at bedside, chart was reviewed. Request for consult is for hempotysis and PEG tube difficulty. HPI: This is an 82-year-old male who is known to our service with a history of esophageal cancer, GERD, hypertension, diabetes mellitus. Was discharged yesterday for complaints of hemoptysis, he had no further episode on admission. He is accompanied to the ER by his daughter. He reports dry cough and after that, he started to spit up phlegm and noted blood streaks, but he states that when he got home yesterday, at night he started having episodes of hemoptysis VS hematemesis, when seen in the container, it looks clear phlegm mixed with dark brown then vomitus. He does have nausea and at times abdominal cramps, mear umbilicus. He wa also having a problem with his G tube, when he went to feed himself, the flow was slow. No SOB or CP. He had BM yesterday and it was pasty, no melena or BRB. In speaking with his daughter the patient FU monthly with Dr. Bronson, he completed chemotherapy/radiation about 1 year now. He was given the option of undergone chemotherapy VS hospice, the patient did not choose either one. 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 He did have endoscopy back in June and July of [address] Carver, found to have LA grade C acute esophagitis with blood in the middle third and the tumor. The scope was only advanced to the middle third of the esophagus. The stomach and duodenum were not examined. Daughter reported at the time they were given option of stent placement but declined. PAST MEDICAL HISTORY: As stated above, he has esophageal cancer. He completed chemotherapy almost a year now and also had radiation. History of diabetes mellitus, GERD, hypertension, has PEG tube. PAST SURGICAL HISTORY: Carotid endarterectomy, gastrostomy tube. Last endoscopy was at [facility] by Dr. Carver. Endoscopy was 07/2016. SOCIAL HISTORY: Former smoker. Denies drugs or ETOH. ALLERGIES: No known drug allergies. MEDICATIONS: Reviewed as per NOV. Significant for Plavix, which is currently on hold. FAMILY HISTORY: Noncontributory at this time. REVIEW OF SYSTEMS: Systems reviewed with positive findings, see HPI. CXR: cardiomegaly, no inflitrates, effusion or pneumothorax. Past Patient History - Infectious Disease Hx of Infectious Diseases: None - Past Medical History & Family History Past Medical History?: Yes - Past Social History Smoking Status: Never Smoked - CARDIAC Hx Cardiac Disorders: Yes Hx Hypertension: Yes Other/Comment: left carotid endarterectomy 5 yrs ago - PULMONARY Hx Respiratory Disorders: No - NEUROLOGICAL Hx Neurological Disorder: No - HEENT Hx HEENT Problems: Yes Other/Comment: wears glasses for reading - RENAL Hx Chronic Kidney Disease: No - ENDOCRINE/METABOLIC Hx Endocrine Disorders: Yes Hx Diabetes Mellitus Type 1: Yes Hx Diabetes Mellitus Type 2: Yes - HEMATOLOGICAL/ONCOLOGICAL Hx Blood Disorders: Yes Hx Anemia: Yes (blood transfusion 04/20/16) Hx Cancer: Yes (esophageal cancer) Hx Unexplained Bleeding: Yes (Hematemesis) Other/Comment: finished radiation "6/7/or 8 months ago" as per pt - INTEGUMENTARY Hx Dermatological Problems: No - MUSCULOSKELETAL/RHEUMATOLOGICAL Hx Falls: No - GASTROINTESTINAL Hx Gastrointestinal Disorders: Yes (esoph ca/peg/dysphagia/gi bleed) HX Swallowing Problems: Yes Other/Comment: esophageal cancer g tube placement, hemetamesis - GENITOURINARY/GYNECOLOGICAL Hx Genitourinary Disorders: No - PSYCHIATRIC Hx Psychophysiologic Disorder: No Hx Emotional Abuse: No Hx Physical Abuse: No Hx Substance Use: No - SURGICAL HISTORY Other/Comment: peg tube - ANESTHESIA Hx Anesthesia: Yes Hx Anesthesia Reactions: No Hx Malignant Hyperthermia: No Meds Allergies/Adverse Reactions: Allergies Allergy/AdvReac Type Severity Reaction Status Date / Time No Known Allergies Allergy Verified 01/27/17 09:12 - Medications Medications: Current Medications Acetaminophen (Tylenol 650 Mg Supp) 650 mg RC Q6H PRN PRN Reason: Pain, moderate (4-7) Amlodipine Besylate (Norvasc) 10 mg PO DAILY [facility] Clopidogrel Bisulfate (Plavix) 75 mg PO DAILY [facility] Dextrose/Sodium Chloride (Dextrose 5%/0.45% Ns 1000 Ml) 1,000 mls @ 75 mls/hr IV .[id number] [facility] Metoclopramide HCl (Reglan) 10 mg PO TID [facility] Metoprolol Tartrate (Lopressor) 25 mg PO BID [facility] Pantoprazole Sodium (Protonix Inj) 40 mg IVP DAILY [facility] Physical Exam - Constitutional Appears: No Acute Distress - Head Exam Head Exam: NORMAL INSPECTION - Eye Exam Eye Exam: Normal appearance, PERRL. absent: Scleral icterus - ENT Exam ENT Exam: Mucous Membranes Moist - Neck Exam Neck exam: Positive for: Normal Inspection - Respiratory Exam Respiratory Exam: Clear to Auscultation Bilateral, NORMAL BREATHING PATTERN. absent: Respiratory Distress - Cardiovascular Exam Cardiovascular Exam: REGULAR RHYTHM, +S1, +S2 - GI/Abdominal Exam GI & Abdominal Exam: Normal Bowel Sounds, Soft, Tenderness. absent: Guarding, Organomegaly, Rebound Additional comments: mild tenderness mid abdomen, PEG, insertion site no bleeding or drainage. IT was recently flushed and return was residue from feedings, no blood. I administered 40 cc H2O by gravity with no difficulty. G tube moveable/ bumper - Extremities Exam Extremities exam: Positive for: pedal pulses present. Negative for: calf tenderness, pedal edema - Neurological Exam Neurological exam: Alert, Oriented x3 - Psychiatric Exam Psychiatric exam: Normal Affect, Normal Mood - Skin Skin Exam: Dry, Warm Results - Vital Signs Recent Vital Signs: Last Vital Signs Temp 99.1 F 01/27/17 09:07 Pulse 77 01/27/17 10:30 Resp 17 01/27/17 10:30 BP 126/75 01/27/17 10:30 Pulse Ox 100 01/27/17 10:30 - Labs Result Diagrams: 01/27/17 11:00 01/27/17 11:00 Assessment & Plan - Assessment and Plan (Free Text) Assessment: ASSESSMENT: This patient a 82 y.o male with history of esophageal cancer, has recurrent episode of hemoptysis VS hematemesis. EGD done in the past found to have severe esophagitis. The endoscopy scope was unable to be advanced to the stomach and duodenum. The scope was only advanced to the middle third of the esophagus. Report reviewed in [employer] system. Anemia, his hemoglobin has remained stable, history of gastroesophageal reflux disease, hypertension, diabetes mellitus. Leukocytosis Anemia GERD HTN DM PLAN: NPO start IVF: D5 1/2 NS @75cchr Protonix [address] scan chest ,abdomen and pelvis Monitor H and H. Tylenol prn pain Thank you for this consult and for allowing us to participate in your patient's care. WIll make further recommendation after review of ct scan and based upon clinical course. Seen and case discussed with Dr. Lemos.
--- NOTE | 2017-01-27 16:23 | CARD ---
APPROVED REPORT EKG Measurement Heart [id number] <Conclusion> Normal sinus rhythm Left axis deviation Septal infarct, age undetermined Inferior infarct, age undetermined Abnormal ECG
[2017-01-27 16:30] VITALS: RESP 18
[2017-01-27] MEDS ORDERED: Insulin Lispro (humaLOG) LOW Coverage SC SCH (16:30)
--- NOTE | 2017-01-27 16:57 | CP.PCM.HP ---
History of Present Illness - History of Present Illness History of Present Illness: CC: I'm coughing up blood. Patient is an 82 y/o esophageal cancer, GERD, hypertension, diabetes mellitus Past Patient History - Infectious Disease Hx of Infectious Diseases: None - Past Medical History & Family History Past Medical History?: Yes - Past Social History Smoking Status: Former Smoker - CARDIAC Hx Cardiac Disorders: Yes Hx Hypertension: Yes Other/Comment: left carotid endarterectomy 5 yrs ago - PULMONARY Hx Respiratory Disorders: No - NEUROLOGICAL Hx Neurological Disorder: No - HEENT Hx HEENT Problems: Yes Other/Comment: wears glasses for reading - RENAL Hx Chronic Kidney Disease: No - ENDOCRINE/METABOLIC Hx Endocrine Disorders: Yes Hx Diabetes Mellitus Type 1: Yes Hx Diabetes Mellitus Type 2: Yes - HEMATOLOGICAL/ONCOLOGICAL Hx Blood Disorders: Yes Hx Anemia: Yes (blood transfusion 04/20/16) Hx Cancer: Yes (esophageal cancer) Hx Unexplained Bleeding: Yes (Hematemesis) Other/Comment: finished radiation "6/7/or 8 months ago" as per pt - INTEGUMENTARY Hx Dermatological Problems: No - MUSCULOSKELETAL/RHEUMATOLOGICAL Hx Falls: No - GASTROINTESTINAL Hx Gastrointestinal Disorders: Yes (esoph ca/peg/dysphagia/gi bleed) HX Swallowing Problems: Yes Other/Comment: esophageal cancer g tube placement, hemetamesis - GENITOURINARY/GYNECOLOGICAL Hx Genitourinary Disorders: No - PSYCHIATRIC Hx Psychophysiologic Disorder: No Hx Emotional Abuse: No Hx Physical Abuse: No - SURGICAL HISTORY Other/Comment: peg tube - ANESTHESIA Hx Anesthesia: Yes Hx Anesthesia Reactions: No Hx Malignant Hyperthermia: No Meds Allergies/Adverse Reactions: Allergies Allergy/AdvReac Type Severity Reaction Status Date / Time No Known Allergies Allergy Verified 01/27/17 09:12 Results - Vital Signs Recent Vital Signs: Last Vital Signs Temp 99.1 F 01/27/17 09:07 Pulse 77 01/27/17 10:30 Resp 18 01/27/17 16:21 BP 126/75 01/27/17 10:30 Pulse Ox 100 01/27/17 10:30 - Labs Result Diagrams: 01/27/17 11:00 01/27/17 11:00
[2017-01-27 20:04] VITALS: BP 133/56; PULSE 83; TEMP 100.2; O2SAT 98
--- NOTE | 2017-01-27 22:07 | CON ---
DATE: 01/27/2017 This patient had multiple admissions now. History of obstructing esophageal lesion, ulcerated, status post chemoradiation. Recently in the hospital with what appeared to be like hemoptysis. Now, the patient was brought to the hospital again with episodes of spitting up some phlegm and some streaks of blood. Questionable hemetemesis. The patient is being followed by the oncologist, Dr. Bronson. The patient was offered palliative chemo. The patient did not choose now. The concern is recurrent episodes. The patient has been on G-tube feeding. Would request at this point CT of the chest, abdomen, and pelvis to further evaluate the status of the lesion. The patient did have a CT done in the past last month, which was also reviewed. Appears to be questionable infiltrative type of changes. It is reasonable to do a repeat CT and reevaluate the old situation to make a definitive plan in view of this recurrent admissions of this patient. We discussed with the patient's daughter after reviewing the CT. Thank you very much for allowing us to participate in the care of the patient. We will continue to closely follow up his care. We will continue to follow up the hemoglobin and hematocrit. Continue the PPI. Kathya Lemos MD cc: [phone] TT: 01/27/2017 22:06:41 Confirmation # [id number] Dictation # [id number] whitley [place]
--- NOTE | 2017-01-28 09:52 | CT ---
PROCEDURE: CT scan of the chest abdomen pelvis dated 01/27/2017. HISTORY: History of esophageal carcinoma. Recurrent hemoptysis. PEG tube. COMPARISON: Comparison made with CT scan chest 12/22/2016 TECHNIQUE: Radiation dose: Total exam DLP = 889.3 mGy-cm. This CT exam was performed using one or more of the following dose reduction techniques: Automated exposure control, adjustment of the mA and/or kV according to patient size, and/or use of iterative reconstruction technique. FINDINGS: CT CHEST WITHOUT CONTRAST: LUNGS: Evaluation of the lung parenchyma reveals what appears represent in addition, presumed and atelectasis within nodular superior on margin exhibiting spiculated borders left lung base. Few tiny felt to be present within the atelectatic changes. Mild atelectasis/ scarring also noted in the right lung base and lingular region as well. No effusion. No evidence of pneumothorax. . MEDIASTINUM: Heart size is mildly enlarged. There is a small pericardial effusion. 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 Descending thoracic aorta measures approximately 3.15 cm. Pulmonary trunk measures approximately 3.64 cm. . . LYMPH NODES: There is wall thickening of the mid to lower thigh esophagus within the proximal esophagus the suggesting incomplete clearing/ dysmotility. In addition, there is an enlarged subcarinal lymph node measuring 2.65 cm. Additional, additionally, there are smaller nonspecific mediastinal lymph nodes. Evaluation for hilar adenopathy is limited due to the lack of circulating intravenous contrast material. PLEURA: No evidence of pneumothorax or effusion. BONES: The osseous structures are intact. Minor multilevel degenerative spondylosis of the thoracic of with mild to moderate degenerative spondylosis lumbar spine. No definitive suspicious lytic or blastic lesions are identified. The visualized ribs appear grossly unremarkable. OTHER FINDINGS: Thyroid gland is prominent. Note is made of minor changes of gynecomastia. CT ABDOMEN AND PELVIS: Evaluation of the solid organs of the abdomen limited due to the lack of circulating intravenous contrast material. LIVER: Liver exhibits normal size measuring approximately 14.3 cm in CC dimension. No obvious hepatic mass or collection. No evidence of gross intrahepatic biliary ductal dilatation GALLBLADDER AND BILE DUCTS: Gallbladder is physiologically distended and contains either layering sludge or gravel. PANCREAS: Visualized portions of the pancreas appear grossly unremarkable no obvious mass collection or calcification. No gross pancreatic ductal dilatation. SPLEEN: Attenuation pattern without mass or collection the spleen exhibits ADRENALS: No adrenal lesions. KIDNEYS AND URETERS: The kidneys exhibit symmetric size. Vascular calcifications present within both hilar regions. There also is a punctate calcification posterior upper midpole right kidney. No evidence of hydronephrosis. There appears to be tiny sub cm low-attenuation focus upper pole right kidney that could represent cyst. VASCULATURE: Unremarkable. No aortic aneurysm. BOWEL: Evaluation of the bowel is limited by the lack of oral contrast material. In situ PEG tube within the lumen of the stomach. Visualized loops of small bowel exhibit normal contour and caliber. No evidence of acute mechanical small bowel obstruction. Stool and air seen throughout the colon. No evidence of definitive mural wall thickening. APPENDIX: What is felt to represent normal appendix best seen on axial image number [id number]. No periappendiceal inflammatory changes. PERITONEUM: Unremarkable. No free fluid. No free intraperitoneal air LYMPH NODES: Unremarkable. No enlarged lymph nodes. BLADDER: Urinary bladder is incompletely distended which may account for slight thick-walled appearance. Muscular hypertrophy may contribute. REPRODUCTIVE: In situ penile implant hardware BONES: No acute fractures OTHER FINDINGS: None. IMPRESSION: Wall thickening of the distal 1/2 of the esophagus consistent with this patient's history of esophageal carcinoma. There is small slight elevation of the proximal esophagus with air-fluid level. enlarged sub carinal lymph node or conglomeration of lymph nodes Bilateral lower lobe atelectatic and scarring changes, most pronounced in the left lung base with supra and aspect of the atelectatic focus exhibits nodular appearance with spiculated borders. There are also a few small calcifications within this area of atelectasis. Cardiomegaly with small pericardial effusion. Limited evaluation of the abdominal structures. Small nonobstructing calcification lower pole right kidney. In situ PEG tube. The sludge or gravel within the distended gallbladder. See above discussion for additional findings and details.
--- NOTE | 2017-01-28 16:33 | PN ---
DATE: 01/28/2017 SUBJECTIVE: Seen and examined at the bedside earlier this morning. [employer] system is down and cont inues to be unavailable during this dictation; unable to obtain recent labs and CT scan. HISTORY OF PRESENT ILLNESS: The patient denies any nausea. No further reports of hemoptysis or heme temesis. Currently n.p.o., on IV fluids. No report of any acute overnight events. PHYSICAL EXAMINATION: HEENT: Sclerae anicteric. NECK: Supple. CARDIAC: S1, S2. LUNGS: With decreased breath sounds. No rales or wheeze. ABDOMEN: With bowel sounds. Soft, not tender at this time. Positive PEG tube in place. No bleedin g, erythema or discharge at insertion site. ASSESSMENT: An 82-year-old male with esophageal cancer came with complaints of hemoptysis versus hem etemesis. The patient has also history of dysphagia and has a percutaneous endoscopic gastrostomy tu be, and also has a history of hypertension and diabetes mellitus. PLAN: Will follow up the CT scan. We will resume patient's feedings of Glucerna 2 cans t.i.d. and p atient will get 60 mL of water flushes in between. Continue PPI and DVT prophylaxis. The patient is on IV fluids; can discontinue if patient is tolerating his tube feedings. Monitor H and H. Discuss ed with Dr. Menard. Consider hospice. The patient was seen and case discussed with Dr. Lemos. Tia HERNANDEZ cc: [id number] TT: 01/28/2017 16:33:01 Confirmation # [id number] Dictation # [id number] mn
[2017-01-28 21:30] LABS: ADD MANUAL DIFF? NO
--- NOTE | 2017-01-29 08:17 | PN ---
DATE: 01/28/2017 ADDENDUM: This is an addendum to the GI progress report dictated by Tia Mckenna NP. IMAGING: The CT findings were reviewed. Discussed with Dr. Menard. PLAN: To be discharged, to be followed up with the oncologist and also consider the palliative care. Family is agreeable. Thank you very much for allowing us to participate in the care of the patient. Kathya Lemos MD cc: [id number] TT: 01/29/2017 01:56:29 Confirmation # [id number] Dictation # [id number] mn
--- NOTE | 2017-01-29 08:17 | HP ---
I saw him earlier this morning at [facility]. The computers were down. I was unable to dictate until this evening. He is an 82-year-old man who I know very well, who recently was discharged from the hospital for a 24-hour observation status for hemoptysis, coughing up blood. He was sent home. His hemoglobin at the time was 9.2. He came back to the hospital tonight for similar symptoms of coughing up blood. There was tinged saliva with clots. He does have a history of esophageal cancer, nonresectable. He has a feeding tube to bypass that area. He takes nothing by mouth. Everything is through the feeding tube. When he came in today his hemoglobin was 10. We watched him overnight for bleeding. He comes in with hemoptysis. 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 He is always going to have it. PAST MEDICAL HISTORY: Hypertension, diabetes, esophageal cancer, hemoptysis. He had a left carotid endarterectomy 5 years ago. He has had blood transfusions in the past, esophageal cancer, hematemesis weekly. He finished radiation in February. He has a esophageal PEG tube for dysphagia and GI bleeding and esophageal cancer. He has swallowing problems. FAMILY HISTORY: No known family history. SOCIAL HISTORY: Never smoked, no alcohol, no drugs. ALLERGIES: No known drug allergies. MEDICATIONS: He takes Plavix, glipizide, Linzess, Lopressor, vitamins, Protonix , Norvasc, and Reglan. The Plavix could be part of the problem, which he takes for his heart and then makes it easier for him to bleed. REVIEW OF SYSTEMS: No acute vision changes or hearing changes. No sore throat. No chest pain. No abdominal pain. No shortness of breath, just coughing up some blood clots. PHYSICAL EXAMINATION: VITAL SIGNS: He had 91.1 temp, 77 pulse, a 17 respiratory rate, 126/75 blood pressure, 100% O2 sat on room air. HEENT: Head is atraumatic, normocephalic. Pupils equally reactive to light and accommodation. Has blood-tinged saliva. NECK: Supple. Thyroid is midline. HEART: Regular rate. LUNGS: Decreased breath sounds, but clear to auscultation with poor inspiration. ABDOMEN: He has a PEG tube in place, soft, nontender, positive bowel sounds, no guarding, no rebound, no CVA tenderness. EXTREMITIES: Have no edema. SKIN: He has no rashes. NEUROLOGIC: He is alert and oriented x 3. LYMPHATICS: No palpable lymphadenopathy appreciated. GENERAL: He is well appearing, nontoxic, comfortable, understands the situation. I discussed with him the problem that he has again with esophageal cancer and he is always going to be coughing up blood because he is on Plavix to protect his heart and brain, and his hemoglobin went from 9.2 when he was discharged up to 10. He had a 13,000 white count. Could be reactionary. He was put in the hospital. He was given his medications. He is on dextrose, insulin, Lopressor, Norvasc, Plavix, Protonix, Reglan, Tylenol. He had 144 sodium, potassium 4.6, BUN is 40, creatinine 1.5, GFR is 45, sugar was 75, calcium is 10.3, total bili is 0.5, AST is 51, ALT is 30, alk phos 122, total protein is 8.3. He had a 13 white count, 10 hemoglobin, 29.3 hematocrit, with 364 platelets. INR is 0.97. He was seen by GI. I discussed his plan for GI, and Dr. Lemos told me to discharge him, there is nothing they can do GI metzger. I consulted palliative care, Bailee Gaitan, to talk to the family. They did not want hospice at this time. Dr. Lemos discussed with the daughter at length the situation. There is not much we can do. The daughter at this time is not interested in hospice, but will think about it. He was put in the hospital for hemoptysis for observation 2 times in 4 days. Will try comfort care hospice at home. Lb Menard DO cc: [id number] TT: 01/29/2017 00:12:03 [place]
--- NOTE | 2017-01-29 08:17 | DS ---
He was put in the hospital on observation status for hemoptysis, coughing, bloody, has got esophageal tumor. He has a feeding tube, and he is going be discharged today. Dr. [facility] told me to discharge him. There is nothing they can do. His hemoglobin is holding steady at 10. When he left 2 days ago it was 9.2. He will go home on his regular medications that he came in with. I called in Bailee Gaitan, the palliative care nurse, to see if we get him on home hospice due to t he fact that if unresectable and cannot do anything about it, he is going to have chronic hemoptysis and there is nothing we can do in the hospital. He will be discharged today on observation status. Th tony can call me for a house call and he is here with hemoptysis with esophageal tumor. Lb Menard DO cc: [id number] TT: 01/29/2017 02:58:00 jn
--- NOTE | 2017-01-29 08:36 | CP.PCM.CON ---
History of Present Illness - History of Present Illness History of Present Illness: Consult requested by Dr Kris Menard Reason: Advance care planning/hospice discussion 84-year-old male admitted with anemia. History of esophageal cancer. PMHx: HTN, DM, anemia, CAD s/p carotid endarterctomy, un-resectable esophageal cancer s/p radiation therapy, dysphagia, PEG Social History: Former smoker, no alcohol or drug use. Lives independently. Family History: Non-Contributory Advance Care Planning: The patient does not have an Advance Directive. Review of Systems: Hemoptysis,weakness, lethargy, decreased appetite Past Patient History - Infectious Disease Hx of Infectious Diseases: None - Past Medical History & Family History Past Medical History?: Yes - Past Social History Smoking Status: Former Smoker - CARDIAC Hx Cardiac Disorders: Yes Hx Hypertension: Yes Other/Comment: left carotid endarterectomy 5 yrs ago - PULMONARY Hx Respiratory Disorders: No - NEUROLOGICAL Hx Neurological Disorder: No - HEENT Hx HEENT Problems: Yes Other/Comment: wears glasses for reading - RENAL Hx Chronic Kidney Disease: No - ENDOCRINE/METABOLIC Hx Endocrine Disorders: Yes Hx Diabetes Mellitus Type 1: Yes Hx Diabetes Mellitus Type 2: Yes - HEMATOLOGICAL/ONCOLOGICAL Hx Blood Disorders: Yes Hx Anemia: Yes (blood transfusion 04/20/16) Hx Cancer: Yes (esophageal cancer) Hx Unexplained Bleeding: Yes (Hematemesis) Other/Comment: finished radiation "6/7/or 8 months ago" as per pt - INTEGUMENTARY Hx Dermatological Problems: No - MUSCULOSKELETAL/RHEUMATOLOGICAL Hx Falls: No - GASTROINTESTINAL Hx Gastrointestinal Disorders: Yes (esoph ca/peg/dysphagia/gi bleed) HX Swallowing Problems: Yes Other/Comment: esophageal cancer g tube placement, hemetamesis - GENITOURINARY/GYNECOLOGICAL Hx Genitourinary Disorders: No - PSYCHIATRIC Hx Psychophysiologic Disorder: No Hx Emotional Abuse: No Hx Physical Abuse: No - SURGICAL HISTORY Other/Comment: peg tube - ANESTHESIA Hx Anesthesia: Yes Hx Anesthesia Reactions: No Hx Malignant Hyperthermia: No Meds Allergies/Adverse Reactions: Allergies Allergy/AdvReac Type Severity Reaction Status Date / Time No Known Allergies Allergy Verified 01/27/17 19:54 Physical Exam - Constitutional Appears: Chronically Ill - Head Exam Head Exam: NORMAL INSPECTION - Eye Exam Eye Exam: Normal appearance, PERRL - ENT Exam ENT Exam: Mucous Membranes Moist, Normal Oropharynx Additional comments: poor dentation - Neck Exam Neck exam: Positive for: Normal Inspection - Respiratory Exam Respiratory Exam: Clear to Auscultation Bilateral, NORMAL BREATHING PATTERN - Cardiovascular Exam Cardiovascular Exam: REGULAR RHYTHM, +S1, +S2 - GI/Abdominal Exam GI & Abdominal Exam: Normal Bowel Sounds, Soft Additional comments: PEG patent - Extremities Exam Extremities exam: Positive for: normal inspection, pedal pulses present - Back Exam Back exam: NORMAL INSPECTION - Neurological Exam Neurological exam: Alert, Oriented x3 - Skin Skin Exam: Dry, Pallor - Additional Findings Additional findings: Palliative performance scale rating 50 % Results - Vital Signs Recent Vital Signs: Last Vital Signs Temp 100.2 F H 01/27/17 16:00 Pulse 83 01/27/17 16:00 Resp 18 01/27/17 16:21 BP 133/56 L 01/27/17 16:00 Pulse Ox 98 01/27/17 16:00 - Labs Result Diagrams: 01/27/17 11:00 01/27/17 11:00 Labs: Laboratory Results - last 24 hr 01/27/17 01/27/17 01/28/17 16:12 21:52 07:15 POC Glucose (mg/dL) 75 129 H 240 H 01/28/17 12:04 POC Glucose (mg/dL) 327 H Assessment & Plan - Assessment and Plan (Free Text) Assessment: 82 year old male admitted with hemoptysis, anemia, weakness. History of advanced esophageal cancer, s/p radiation therapy The patient is alert an orient. Patient is aware that he has esophageal cancer that is not curable. I explained that as his condition worsens he will have more symptoms and likely some discomfort. Offered option for hospice care. I explained hospice services in detail. Patient states he isnt ready for hospice care now. I also discussed resuscitation wishes with patient. He does not have an Advance Directive. He states he doesnt want to be intubated or have CPR if his condition worsens. Patient unwilling to complete a POLST today. I also spoke with patient daughter Kimberly Mcintosh via phone. Daughter understands that her fathers cancer is incurable. She verbalized that his condition is worsening. Hospice services explained in detail, all questions answered. Daughter states she will speak to her father about considering hospice care. I also encouraged daughter to discuss resuscitation status with him and to enact an Advance Directive. Time spent with patient and daughter in goals of care discussion and end of life care planning, 45 minutes Plan: Advance care planing. Hospice discussion. Discharged home with health services. Thank you for allowing me to participate in this patients care
[2017-01-29 13:37] LABS: POTASSIUM 4.7 mmol/L (3.6-5.0)
[2017-01-29 13:38] LABS: ALB/GLOB RATIO 0.7 (1.1-1.8); BILIRUBIN,TOTAL 0.6 mg/dL (0.2-1.3); CALCIUM 9.9 mg/dL (8.4-10.5); TOTAL PROTEIN 7.9 g/dL (5.8-8.3)
[2017-01-29 16:22] LABS: BASO # 0.07 K/mm3 (0.0-2.0); BASO % 0.6 % (0.0-3.0); EOS # 0.3 (0.0-0.7); EOS % 2.8 % (1.5-5.0); GRAN # 8.48 (1.4-6.5); GRAN % 75.6 % (50.0-68.0); HEMATOCRIT 27.6 % (42.0-52.0); LYMPH # 1.6 (1.2-3.4); LYMPH % 13.8 % (22.0-35.0); MEAN CELL VOLUME 78.9 fL (80.0-105.0); MEAN CORPUSCULAR HEMOGLOBIN 26.6 pg (25.0-35.0); MEAN CORPUSCULAR HGB CONC 33.7 g/dl (31.0-37.0); MEAN PLATELET VOLUME 9.5 fl (7.0-11.0); MONO # 0.8 (0.1-0.6); MONO % 7.2 % (1.0-6.0); PLATELET COUNT 362 10^3/uL (120.0-450.0); RED CELL DISTRIBUTION WIDTH 14.1 % (11.5-14.5); WHITE BLOOD COUNT 11.2 10^3/ul (4.5-11.0)
== END 2017-01-28 19:28 | disposition home or self-care (01) ==
LOC: ED 08:58 → ERH 12:23 → 3RNO 13:07
PROVIDERS: ADMIT Internal Medicine; ATTEND Internal Medicine
DX: C15.9 Malignant neoplasm of esophagus, unspecified (principal); K92.2 Gastrointestinal hemorrhage, unspecified; D64.9 Anemia, unspecified; D72.829 Elevated white blood cell count, unspecified; E11.9 Type 2 diabetes mellitus without complications; I10 Essential (primary) hypertension; I25.10 Atherosclerotic heart disease of native coronary artery without angina pectoris; K21.0 Gastro-esophageal reflux disease with esophagitis; Z79.02 Long term (current) use of antithrombotics/antiplatelets; Z79.899 Other long term (current) drug therapy; Z87.891 Personal history of nicotine dependence; Z92.21 Personal history of antineoplastic chemotherapy; Z92.3 Personal history of irradiation; Z93.1 Gastrostomy status; R04.2 Hemoptysis
CPT/HCPCS: 36415; 71010; 71250; 74176; 80053; 82948; 83690; 85025; 85610; 85730; 86850; 86900; 87040; 93005; 96374; 99285; C9113; G0378; J7042